=== PATIENT | female | born 1985 | race Caucasian/White ===

== ENCOUNTER 2016-09-18 02:09 | Emergency (ER) | payer OTHER ==
[~2016-09-18] VITALS: Ht 152.4 cm; Wt 90.6 kg
[~2016-09-18 02:09] MED LIST: BCPILLS PO
[2016-09-18 02:17] VITALS: TEMP 36.5; Ht 152.4 cm; Wt 90.6 kg
[2016-09-18 02:50] LABS: PREG INTERNAL NEGATIVE QC NEG CLEAR BACKGROUND; PREG INTERNAL POSITIVE QC POS CONTROL LINE
[2016-09-18 02:51] LABS: URINE APPEARANCE CLEAR (CLEAR); URINE BILIRUBIN NEG (NEG); URINE COLOR YELLOW; URINE EPITHELIAL CELL AUTO 0-5 /lpf (0-5); URINE NITRITE NEG (NEG); URINE PH 5.5 (4.5-7.5); URINE SPECIFIC GRAVITY 1.002 (1.000-1.030); UROBILINOGEN NEG (NEG); ZZUR CULT IF INDIC CLEAN CATCH YES
[2016-09-18 02:55] LABS: MANUAL MICROSCOPIC REQUIRED? NO; REVIEW REQ? NO
[2016-09-18] MEDS ORDERED: SULFAMETHOXAZOLE/TRIMETHOPRIM DS 800/160MG TAB PO STA (02:59)
[2016-09-18] MEDS ORDERED: PHENAZOPYRIDINE HCL 200 MG TAB PO STA (02:59)
[2016-09-18] MEDS ORDERED: SEPTRA DS HOME PACK 1 EA VIAL PO ONE (03:00)
[2016-09-18] MEDS ORDERED: PHENAZOPYRIDINE HOME PACK 200 MG VIAL PO ONE (03:00)
[2016-09-18 03:03] VITALS: BP 102/71; PULSE 82; O2SAT 100
[2016-09-18] MEDS ORDERED: PHEN-876 PO (03:09)
[2016-09-18] MEDS ORDERED: SULF800T23 PO (03:09)
--- NOTE | 2016-09-18 03:10 | EMERGENCY ROOM VISIT NOTE ---
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 Patient is a 31-year- old female who presents to the emergency Department this morning for evaluation of her brain with urination and suprapubic pain. She reports that she developed symptoms approximately 1 hour prior to arrival. She reports a history of UTI approximately 9 years ago. She denies any fevers, but does report chills. She feels nauseated, but has not vomited. There is been no pain into her back or flank. The patient rates her current discomfort as an 8/ 10. She is tried nothing [id number]-[id number] for her symptoms. She is uncertain of her status. Her last period was August 25. She denies any headaches , distance, chest pain, palpitations, short of breath, hematemesis, hematochezia , melena, hematuria, or dysuria. She denies any vaginal bleeding or spotting. Medications: No current medications. Allergies: No known allergies. PMH: No pertinent past medical history. SHx: Patient is a 31-year-old female who lives locally. ROS: All pertinent positive and negative review of systems are appropriately documented in the History of Present Illness. Physical Exam: VITAL SIGNS - Vital signs and nursing notes were reviewed. GENERAL - 31-year-old female appearing her stated age who is in no acute distress. Communicates well with provider and answers questions appropriately. ABDOMEN - Abdominal contour obese and without pulsations or visible masses. BS normoactive all four quadrants. Mild tenderness to palpation appreciated in the suprapubic area. No palpable masses, hepatosplenomegaly, or ascites noted. PSYCH - A&Ox3 and cooperates fully with examiner. Pt is very pleasant and interacts well with examiner. LABS: Last 24 Hours Test 09/18/16 02:22 Urine Color YELLOW Urine Appearance CLEAR Urine pH 5.5 Urine Specific [place] 1.002 Urine Protein NEG Urine Glucose (UA) NEG Urine Ketones NEG Urine Occult Blood 3+ Urine Nitrite NEG Urine Bilirubin NEG Urine Urobilinogen NEG Urine Leukocyte Esterase MODERATE Urine WBC (Auto) 10-30 /hpf Urine RBC (Auto) 0-4 /hpf Urine Hyaline Casts (Auto) 0 /lpf Urine Epithelial Cells (Auto) 0-5 /lpf Urine Bacteria (Auto) 1+ Urine Test NEG ED Course: Patient was seen and evaluated by myself. Urinalysis was obtained. Patient was treated with Bactrim and Pyridium orally in the emergency setting. She was encouraged to follow-up with her primary care provider. She was educated on worrisome symptoms for return visit to the emergency department. Patient discharged home afebrile and in good condition. In the evaluation and treatment of this patient, the following differential diagnoses were considered: Bladder Cancer, Chlamydial Genitourinary Infection, Cystitis, Herpes Simplex, Interstitial Cystitis, PID, Pyelonephritis, Urethritis , or Vaginitis. Impression: UTI, Dysuria Discharge Instructions: You have been treated in the Emergency Department for a Urinary Tract Infection (UTI). You have been prescribed Bactrim to be taken as prescribed. This is an antibiotic. All antibiotics have the potential to cause diarrhea. Stop this medication and contact a medical provider if you were to develop any significant adverse side effects including: wheezing, shortness of breath, passing out, vomiting, or a diffuse rash. Always take antibiotics as directed and COMPLETE the ENTIRE course regardless of the improvement of your symptoms. You have been prescribed Pyridium to be taken as prescribed. This medicine will help with the urinary symptoms that you have been experiencing. Be aware that Pyridium may turn your urine a red-orange or brown color. This effect is harmless. For pain control, you can use the following rdzn-vsl-ovtfmcr medicines (if >12 yo): - Regular strength (325mg/tab) Tylenol (acetaminophen) 2 tabs every 4-6 hours as needed. Do not exceed 12 tablets in a 24 hour period. Avoid taking more than 4 grams (4000 mg) of Tylenol per day. This includes any other sources of acetaminophen you may take on a regular basis. - Regular strength (200 mg/tab) Advil (ibuprofen) 1-2 tabs every 4-6 hours as needed. Do not exceed a dose of 3200 mg per day. Return to the emergency department if your symptoms worsen despite treatment course outlined above. Drink plenty of water and stay well hydrated. As with any trip to the Emergency Department, you should follow-up with your Primary Care Provider from today's visit. Return to the emergency department if your symptoms persist despite treatment plan outlined above or if the following symptoms occur: increased fevers, chills , low back pain, nausea/vomiting, or blood in your urine. Problem List Surgical Problems: (1) Hx of tonsillectomy Status: Resolved Current/Historical Medications Scheduled Control Pills ( Control Pills), 1 TAB PO DAILY Phenazopyridine HCl (Pyridium), 200 MG PO TID Sulfa/Trimethoprim (Bactrim Ds 800MG/160MG), 1 TAB PO BID Allergies Coded Allergies: No Known Allergies (Unverified , 09/18/16) Vital Signs Date Time Temp Pulse Resp B/P Pulse Ox O2 Delivery O2 Flow Rate FiO2 09/18/16 03:03 82 18 102/71 100 Room Air 09/18/16 02:17 36.5 80 18 124/83 100 Room Air Laboratory Results Test 09/18/16 02:22 Urine Color YELLOW Urine Appearance CLEAR (CLEAR) Urine pH 5.5 (4.5-7.5) Urine Specific [place] 1.002 (1.000-1.030) Urine Protein NEG (NEG) Urine Glucose (UA) NEG (NEG) Urine Ketones NEG (NEG) Urine Occult Blood 3+ (NEG) Urine Nitrite NEG (NEG) Urine Bilirubin NEG (NEG) Urine Urobilinogen NEG (NEG) Urine Leukocyte Esterase MODERATE (NEG) Urine WBC (Auto) 10-30 /hpf (0-5) Urine RBC (Auto) 0-4 /hpf (0-4) Urine Hyaline Casts (Auto) 0 /lpf (0-5) Urine Epithelial Cells (Auto) 0-5 /lpf (0-5) Urine Bacteria (Auto) 1+ (NEG) Urine Test NEG (NEG) Medications Administered Medications (Trade) Dose Ordered Sig/Margret Route Start Time Stop Time Status Last Admin Dose Admin Trimethoprim/ Sulfamethoxazole (Sulfameth/ Trimeth Ds 800/ 160MG Home Pack) 1 homepack UD ONCE PO 09/18/16 03:00 09/18/16 03:01 DC 09/18/16 03:23 1 HOMEPACK Trimethoprim/ Sulfamethoxazole (Septra Ds 800/ 160MG Tab) 1 tab NOW STAT PO 09/18/16 02:59 09/18/16 03:00 DC 09/18/16 03:22 1 TAB Phenazopyridine HCl (Pyridium Tab) 200 mg NOW STAT PO 09/18/16 02:59 09/18/16 03:01 DC 09/18/16 03:22 200 MG Phenazopyridine HCl (Phenazopyridine HCl 200MG Home Pack) 1 homepack UD ONCE PO 09/18/16 03:00 09/18/16 03:01 DC 09/18/16 03:23 1 HOMEPACK Departure Information Impression Primary Impression: Urinary tract infection Additional Impression: Dysuria Dispostion Home / Self-Care Condition GOOD Prescriptions Phenazopyridine HCl (Pyridium) 200 Mg Tab 200 MG PO TID for 3 Days, #9 TAB Prov: Andrew Hernandez PA-C 09/18/16 Sulfa/Trimethoprim (Bactrim Ds 800MG/160MG) Tab 1 TAB PO BID for 5 Days, #10 TAB Prov: Andrew Hernandez PA-C 09/18/16 Referrals Isaiah Diaz M.D. (PCP) Patient Instructions ED UTI Cystitis Female, [facility] Additional Instructions You have been treated in the Emergency Department for a Urinary Tract Infection (UTI). You have been prescribed Bactrim to be taken as prescribed. This is an antibiotic. All antibiotics have the potential to cause diarrhea. Stop this medication and contact a medical provider if you were to develop any significant adverse side effects including: wheezing, shortness of breath, passing out, vomiting, or a diffuse rash. Always take antibiotics as directed and COMPLETE the ENTIRE course regardless of the improvement of your symptoms. You have been prescribed Pyridium to be taken as prescribed. This medicine will help with the urinary symptoms that you have been experiencing. Be aware that Pyridium may turn your urine a red-orange or brown color. This effect is harmless. For pain control, you can use the following gxzc-tyo-otfllat medicines (if >12 yo): - Regular strength (325mg/tab) Tylenol (acetaminophen) 2 tabs every 4-6 hours as needed. Do not exceed 12 tablets in a 24 hour period. Avoid taking more than 4 grams (4000 mg) of Tylenol per day. This includes any other sources of acetaminophen you may take on a regular basis. - Regular strength (200 mg/tab) Advil (ibuprofen) 1-2 tabs every 4-6 hours as needed. Do not exceed a dose of 3200 mg per day. Return to the emergency department if your symptoms worsen despite treatment course outlined above. Drink plenty of water and stay well hydrated. As with any trip to the Emergency Department, you should follow-up with your Primary Care Provider from today's visit. Return to the emergency department if your symptoms persist despite treatment plan outlined above or if the following symptoms occur: increased fevers, chills , low back pain, nausea/vomiting, or blood in your urine. Problem Qualifiers Primary Impression: Urinary tract infection Urinary tract infection type: acute cystitis Hematuria presence: without hematuria Qualified Codes: N30.00 - Acute cystitis without hematuria
== END 2016-09-18 03:25 | disposition home or self-care (01) ==
LOC: C.EDB 02:10
DX: N39.0 Urinary tract infection, site not specified (principal); E66.9 Obesity, unspecified; Z79.3 Long term (current) use of hormonal contraceptives; Z68.39 Body mass index [BMI] 39.0-39.9, adult

== ENCOUNTER → 2017-01-04 | Outpatient (CLI) | payer OTHER ==
[2017-01-04 13:01] LABS: GTGD 50 Grams
== END | disposition home or self-care (01) ==
LOC: C.LAB1850 10:53
PROVIDERS: ATTEND Obstetrics & Gynecology
DX: Z34.82 Encounter for supervision of other normal pregnancy, second trimester (principal)

== ENCOUNTER → 2017-03-08 | Outpatient (CLI) | payer OTHER ==
[2017-03-08 11:25] LABS: URINE APPEARANCE CLEAR (CLEAR); URINE BILIRUBIN NEG (NEG); URINE COLOR DK YELLOW; URINE EPITHELIAL CELL AUTO >30 /lpf (0-5); URINE NITRITE NEG (NEG); URINE PH 5.5 (4.5-7.5); URINE SPECIFIC GRAVITY 1.025 (1.000-1.030); UROBILINOGEN NEG (NEG)
[2017-03-08 11:27] LABS: MANUAL MICROSCOPIC REQUIRED? NO; REVIEW REQ? NO
== END | disposition home or self-care (01) ==
LOC: C.LABSPEC 11:02
PROVIDERS: ATTEND Obstetrics & Gynecology
DX: Z34.82 Encounter for supervision of other normal pregnancy, second trimester (principal); Z3A.00 Weeks of gestation of pregnancy not specified

== ENCOUNTER → 2017-03-08 | Outpatient (CLI) | payer OTHER ==
[2017-03-08 10:34] LABS: GTGD 50 Grams
[2017-03-08 10:38] LABS: HEMATOCRIT 34.1 % (37-47)
== END | disposition home or self-care (01) ==
LOC: C.LAB1850 09:49
PROVIDERS: ATTEND Obstetrics & Gynecology
DX: Z34.82 Encounter for supervision of other normal pregnancy, second trimester (principal); Z3A.00 Weeks of gestation of pregnancy not specified

== ENCOUNTER → 2017-05-05 | Outpatient (CLI) | payer OTHER | END | disposition home or self-care (01) | LOC: C.LABSPEC 13:34 | PROVIDERS: ATTEND Obstetrics & Gynecology | DX: Z34.83 Encounter for supervision of other normal pregnancy, third trimester (principal); Z3A.00 Weeks of gestation of pregnancy not specified ==

== ENCOUNTER 2017-06-06 01:00 | Inpatient (IN) | payer OTHER ==
[~2017-06-06] VITALS: Ht 152.4 cm; Wt 97.1 kg
[2017-06-06] MEDS ORDERED: NURSING VERBAL MED ORDER ONE (01:30)
[2017-06-06] MEDS ORDERED: BUPIVACAINE 0.25% 30 ML VIAL ONE (01:43)
[2017-06-06] MEDS ORDERED: FENTANYL 2MCG/ML ROPIV 1.25MG/ML 100ML BAG EPI ONE (01:43)
[2017-06-06] MEDS ORDERED: EpHEDrine SULFATE INJ 50 MG/ML AMP ONE (01:43)
[2017-06-06] MEDS ORDERED: FENTANYL CITRATE INJ 50 MCG/1 ML 2 ML VIAL ONE (01:44)
[2017-06-06] MEDS ORDERED: PRENTAB26 PO (01:47)
[2017-06-06 01:49] VITALS: Ht 152.4 cm; Wt 97.1 kg
[2017-06-06] MEDS ORDERED: LACTATED RINGER'S 1000ML 1,000 ML IV SCH (01:52)
[2017-06-06] MEDS ORDERED: LACTATED RINGER'S 1000ML 1,000 ML IV PRN (01:52)
[2017-06-06 02:10] LABS: HEMATOCRIT 38.5 % (37-47); MEAN CORPUSCULAR HEMOGLOBIN 31.7 pg (25-34); MEAN CORPUSCULAR HGB CONC 34.8 g/dl (32-36); MEAN PLATELET VOLUME 13.6 fL (7.4-10.4); PLATELET COUNT 107 K/uL (130-400); PLT ESTIMATE DECREASED; RED BLOOD COUNT 4.23 M/uL (4.2-5.4); WHITE BLOOD COUNT 6.76 K/uL (4.8-10.8)
[2017-06-06] MEDS ORDERED: NALOXONE HCL INJ 1 MG in SODIUM CHLORIDE 0.9% 1000ML 1,000 ML IV PRN (02:36)
[2017-06-06] MEDS ORDERED: LACTATED RINGER'S 1000ML 500 ML IV PRN (02:36)
[2017-06-06] MEDS ORDERED: DiphenhydrAMINE HCL 50 MG/ML VIAL IV PRN (02:45)
[2017-06-06] MEDS ORDERED: NALBUPHINE HCL INJ 10 MG/ML AMP IV PRN (02:45)
[2017-06-06] MEDS ORDERED: FENTANYL 2MCG/ML ROPIV 1.25MG/ML 100ML BAG EPI PRN (02:45)
[2017-06-06] MEDS ORDERED: ONDANSETRON INJ 2 MG/ML 2 ML VIAL IV PRN (02:45)
[2017-06-06] MEDS ORDERED: NALOXONE HCL INJ 0.4 MG/1 ML VIAL/CARP IV PRN (02:45)
[2017-06-06] MEDS ORDERED: EpHEDrine SULFATE INJ 50 MG/ML AMP IV PRN (02:45)
[2017-06-06] MEDS ORDERED: OXYTOCIN 30 UNITS/500ML NSS IV ONE (03:02)
[2017-06-06] MEDS ORDERED: DIPHTHERIA/TETANUS/PERTUSSIS 0.5 ML SYR/VIAL IM. ONE (04:00)
[2017-06-06] MEDS ORDERED: ACETAMINOPHEN 325 MG TAB PO PRN (04:00)
[2017-06-06] MEDS ORDERED: BENZOCAINE 20% AER SPR 82.5 GM CAN EXT PRN (04:00)
[2017-06-06] MEDS ORDERED: LANOLIN OINT EXT PRN ×2 (04:00)
[2017-06-06] MEDS ORDERED: ACETAMINOPHEN/CODEINE 300/30MG TAB PO PRN ×2 (04:00)
[2017-06-06] MEDS ORDERED: SUPERCREAM 0.870 % 15GM JAR EXT PRN (04:00)
[2017-06-06] MEDS ORDERED: HYDROCORTISONE ACETATE 25 MG SUPP PR PRN (04:00)
[2017-06-06] MEDS ORDERED: OXYTOCIN 30 UNITS/500ML NSS IV PRN (04:00)
--- NOTE | 2017-06-06 05:18 | DELIVERY SUMMARY ---
DATE OF OPERATION: 06/06/2017 FINDINGS: Viable female with Apgars of 8 and 9. Baby delivered spontaneously over a midline second degree laceration. Cord gases and cord blood samples obtained. Placenta delivered spontaneously. Laceration repaired with 4-0 Vicryl. ESTIMATED BLOOD LOSS: 300 mL. DELIVERY NOTE: The patient is a 31-year-old 4, para 2 with an EDC of 01 June by dates and first trimester ultrasound who presented in active labor. The patient states that contractions began somewhere in evening on the 05 of June and increased in intensity. She denied rupture of membranes or vaginal bleeding. The patient has had a benign course. She does not speak any [place] and all communication has been through her . The patient's blood type is A+, antibody negative, rubella immune, hepatitis B negative. She declined a quad screen. She denied first trimester cell for a DNA screen. She had normal 1-hour Glucola x2 and a negative third trimester beta strep culture. Upon admission, the patient was 6 cm dilated, 100% effaced and active labor. Tracing was category 2. The patient requested an epidural which was placed following placement of the epidural. The patient was fully dilated. Artificial rupture of membranes for clear fluid. The patient began her second stage and pushed for approximately 10 minutes to deliver the viable female infant. Cord was clamped and cut. Cord gases and cord blood samples obtained. Placenta delivered spontaneously. Inspection of the perineum showed a midline second degree laceration which was repaired with 4-0 Vicryl in routine fashion. Estimated blood loss 300 mL. Sponge and needle count was correct. I attest to the content of the Intraoperative Record and any orders documented therein. Any exception s are noted below.
[2017-06-06 06:10] VITALS: BP 100/65; PULSE 63; TEMP 36.9
[2017-06-06] MEDS: FERROUS SULFATE 325 MG TAB PO SCH (07:57)
[2017-06-06] MEDS: DOCUSATE SODIUM 100 MG CAP PO SCH ×2 (07:58→20:00)
[2017-06-06] MEDS: PRENATAL VITAMIN TAB PO SCH (07:58)
[2017-06-06 08:00] VITALS: BP 117/79; PULSE 78; TEMP 36.8
[2017-06-06] MEDS: IBUPROFEN 600 MG TAB PO PRN ×4 (08:21→20:29)
--- NOTE | 2017-06-06 11:25 | Anesthesia Procedure Note ---
Anesthesia Epidural Removal Nt Date & Time Jun 06, 2017 at 11:25 Vital Signs Pain Intensity: 1.0 Vital Signs Past 12 Hours Date Time Temp Pulse Resp B/P (MAP) Pulse Ox O2 Delivery O2 Flow Rate FiO2 06/06/17 08:00 36.8 78 18 117/79 (92) Room Air 06/06/17 08:00 Room Air 06/06/17 06:10 Room Air 06/06/17 06:10 36.9 63 18 100/65 (77) Room Air Notes Mental Status: alert / awake / arousable, participated in evaluation Nausea / Vomiting: adequately controlled Pain: adequately controlled Airway Patency, RR, SpO2: stable & adequate BP & HR: stable & adequate Hydration State: stable & adequate Neuraxial Anesthesia: was administered Anesthetic Complications: no major complications apparent, pt satisfied with anesthetic care Epidural: removed without complications, with tip intact
[2017-06-06 12:00] VITALS: BP 103/69; PULSE 55; TEMP 37
[2017-06-06 15:45] VITALS: BP 107/72; PULSE 73; TEMP 36.9
[2017-06-06 19:30] VITALS: BP 97/65; PULSE 73; TEMP 36.5
[2017-06-06 23:00] VITALS: BP 101/68; PULSE 80; TEMP 37
[2017-06-07 03:05] VITALS: BP 118/78; PULSE 72; TEMP 36.6
[2017-06-07] MEDS: IBUPROFEN 600 MG TAB PO PRN ×4 (03:07→23:47)
[2017-06-07 06:31] LABS: HEMATOCRIT 35.5 % (37-47)
[2017-06-07 07:29] VITALS: BP 95/65; PULSE 65; TEMP 36.5
--- NOTE | 2017-06-07 07:57 | Progress Note ---
Subjective Jun 07, 2017. Subjective conversation w/ patient, physical exam, lab review Ambulation: ambulating normally Voiding: no voiding problems Passing Gas: Yes Diet Tolerance: Regular Diet Lochia: Small Feeding Type: Breast Feeding Pain: controlled with pain meds Objective Vital Signs Date Time Temp Pulse Resp B/P (MAP) Pulse Ox O2 Delivery O2 Flow Rate FiO2 06/07/17 07:29 36.5 65 20 95/65 (75) 06/07/17 03:05 36.6 72 16 118/78 (91) Room Air 06/06/17 23:00 Room Air 06/06/17 23:00 37.0 80 18 101/68 (79) Room Air 06/06/17 19:30 36.5 73 18 97/65 (76) Room Air 06/06/17 15:45 36.9 73 18 107/72 (84) Room Air 06/06/17 15:45 Room Air 06/06/17 12:00 37.0 55 18 103/69 (80) Room Air 06/06/17 08:00 36.8 78 18 117/79 (92) Room Air 06/06/17 08:00 Room Air Physical Exam General Appearance: WELL-APPEARING, WD/WN, NO APPARENT DISTRESS Abdomen: non tender, soft Fundus: Firm, Non-Tender, Relation to Umbilicus (at u) Extremities: non-tender, normal inspection, + pedal edema (+1) Laboratory Results Last 24 Hours Test 06/07/17 06:05 Hemoglobin 12.0 g/dL Hematocrit 35.5 % Assessment and Plan Problem List Medical Problems: (1) Chemical conjunctivitis of left eye Status: Acute (2) Dysuria Status: Acute (3) Urinary tract infection Status: Acute Post- Day#: 1 Continue Routine Care: Doing well. Routine care. Plan d/c tomorrow. Interview today with market research lead.
[2017-06-07] MEDS: FERROUS SULFATE 325 MG TAB PO SCH (08:13)
[2017-06-07] MEDS: DOCUSATE SODIUM 100 MG CAP PO SCH ×2 (08:13→20:15)
[2017-06-07] MEDS: PRENATAL VITAMIN TAB PO SCH (08:13)
[2017-06-07 15:30] VITALS: BP 121/79; PULSE 59; TEMP 36.7
[2017-06-07] MEDS ORDERED: BISACODYL 5 MG TABEC PO SCH (20:00)
[2017-06-07 23:10] VITALS: BP 99/66; PULSE 77; TEMP 36.8
[2017-06-08] MEDS: IBUPROFEN 600 MG TAB PO PRN (05:40)
--- NOTE | 2017-06-08 06:39 | Discharge Instructions ---
Discharge Instructions Date of Service Jun 08, 2017. Admission Reason for Admission: LABOR Discharge Discharge Diagnosis / Problem: recovery from ormal delivery Discharge Goals Goal(s): Routine recovery after delivery Medications Continue Dispensed Medications: supercream, dermaplast, tucks, lansinoh Activity Recommendations Activity Limitations: per Instructions/Follow-up section . Instructions / Follow-Up Instructions / Follow-Up ACTIVITY RECOMMENDATIONS: * Gradual return to full activity over the next 2-3 weeks. * No lifting - nothing heavier than baby over the next 2-3 weeks. * Do not engage in vigorous exercise, sexual activity or sports until cleared by your physician. * Do not drive or operate any motorized equipment until cleared by your physician. * You may shower/bathe daily. MEDICATIONS: For discomfort or pain, you may use Acetaminophen (Tylenol), Ibuprofen (Advil), or Naproxen (Aleve) following the package directions. For constipation you may use Colace following the package directions. BREAST CARE: If you are not breast feeding: * Wear a supportive bra 24 hours a day for one to two weeks. * Avoid stimulating your breasts and nipples as much as possible during the first few weeks after delivery. * When taking a shower, have the warm water hit your back, not breasts. * When your breasts feel full, apply ice packs. Usually three to four times a day helps ease the discomfort. * Take a mild pain medication (Tylenol / Motrin) when you are uncomfortable. If breast feeding: * Use breast milk to lubricate nipples. Lansinoh cream may be used for sore nipples. You do not need to remove cream prior to breast feeding. If using a different brand of cream, check the label for directions regarding removal of cream prior to nursing. * Wear a supportive bra. * If having problems with breasts or breast feeding, call a bank consultant or your health care provider. EPISIOTOMY CARE: After delivery, if you have an episiotomy (stitches), the following steps will ease discomfort and aid healing. * For the first 24 hours after delivery, place ice packs next to your episiotomy to help reduce swelling. * After the first 24 hour-period, sitz baths, either portable or in the tub, are suggested. A shower with a shower arm sprayed over the episiotomy may be comforting. * Tala care should be done after each voiding and bowel movement. Squirt warm water from a plastic bottle over the perineum (region of the body between the anus and urinary opening) and pat dry. * Use Dermoplast to ease discomfort. Shake container. [place] directly over the episiotomy. Place a Tucks on a clean sanitary pad next to your episiotomy. SPECIAL CARE INSTRUCTIONS: When you are discharged from the hospital, it is important for you to follow the instructions listed below: * During the first week at home, you should be able to care for yourself and your baby. In addition, the usual light household activities are encouraged. * Limit your activities to the way you feel. Do not try to clean the house or move furniture. Be sensible. * If you actively engage in sports and have done so up until the time of your delivery, you may resume these activities as soon as you feel able. This may take up to one month or even longer. Use good judgment. * Continue to take your vitamins for at least six weeks after the of your baby. * Your diet need not be limited unless you were on a special diet before your delivery. Breast-feeding mothers need around 2500 calories per day and at least 64-80 ounces of fluid per day (8 to 10 glasses). * You should eat foods from the four major food groups. Crash diets or fad diets are to be avoided. Eating lean meats, fresh fruits and vegetables, low-fat dairy products, high fiber foods and a regular exercise program, will help you get back to your pre- weight without putting your health at risk. * Constipation is sometimes a problem after delivery. Take a mild laxative as needed. If breast feeding, Milk of Magnesia is acceptable to use. You may use a suppository or Fleets enema if no episiotomy. * A daily shower or tub bath is suggested. Be sure to thoroughly and gently dry the perineum. * A bloody vaginal discharge will usually continue until around four weeks post . A small amount of bleeding may continue for as long as six weeks. Vaginal discharge changes from the bright red bleeding after delivery to pink then brownish and finally yellowish-pink before becoming white and disappearing. * Bleeding may increase with activity. Your first period may come in 4-8 weeks. If you are breast feeding, your period may be delayed even longer. * [place] (sex) can begin whenever both you and your partner feel comfortable and do not have any form of genital infection. It is recommended that you wait at least six weeks for internal and external healing to occur. If you have questions, please talk to your health care practitioner. A condom should be used to prevent infection and . * Foreplay, gentle intercourse and lubrication is very important the first several times to prevent pain. A water-based lubricant such as K-Y jelly or Astroglide may be used. * If you have RH negative blood and your baby is RH positive, you will receive RHOGAM by injection prior to discharge. The nurse will give you a card to keep with you that has the date and place that you received RHOGAM after delivery. * During your care, you had a Rubella screen done to check for the presence of rubella antibodies in your blood. If your test was negative, you will receive a Rubella vaccine prior to discharge. This vaccine may cause a fever, soreness at the injection site and flu-like symptoms. If these symptoms persist, notify your health care practitioner. is not advised for one month after a Rubella vaccine. * Verbalizes understanding of car seat law as reviewed with patient nursing. * Car Seat hand-out given and reviewed with patient by nursing. * Shaken baby information reviewed with patient by nursing. Call you doctor if: * Heavy bleeding (saturating several pads an hour) or passing clots the size of your fist. * A fever >101 degrees F (38.3 degrees C) on two occasions four hours apart and /or chills. * Unusual pain in the pelvic or vaginal areas. * "Baby Blues" lasting longer than two weeks. If you have any questions or concerns, call your health care practitioner at . FOLLOW UP VISIT: * Please call the office at to schedule a 6 week examination. It is important you keep this appointment. It is important for you to make arrangements for either yearly or twice yearly check-ups thereafter. Current Hospital Diet Patient's current hospital diet: Regular OB Diet Discharge Diet Recommended Diet: Regular OB Diet Pending Studies Studies pending at discharge: no Medical Emergencies . Who to Call and When: Medical Emergencies: If at any time you feel your situation is an emergency, please call [phone] immediately. . Non-Emergent Contact Non-Emergency issues call your: Drawing In Machine Tender . . "Provider Documentation" section prepared by Joleen Dumont. . VTE Core Measure Inpt VTE Proph given/why not?: Treatment not indicated
--- NOTE | 2017-06-08 07:08 | Progress Note ---
Subjective Jun 08, 2017. Subjective conversation w/ patient, physical exam Ambulation: ambulating normally Voiding: no voiding problems Passing Gas: Yes Diet Tolerance: Regular Diet Lochia: Small Feeding Type: Breast Feeding Review of Systems Constitutional: No fever, No chills, No sweats, No weight loss, No weakness, No fatigue, No problem reported Breast: No see HPI, No breast lump, No change in shape, No nipple discharge, No breast pain, No problem reported Abdomen: No pain, No nausea, No vomiting, No diarrhea, No constipation, No GI bleeding, No problem reported Female : No see HPI, No dysuria, No urinary frequency, No hematuria, No incontinence, No abnormal vaginal bleeding, No vaginal discharge, No problem reported Objective Vital Signs Date Time Temp Pulse Resp B/P (MAP) Pulse Ox O2 Delivery O2 Flow Rate FiO2 06/07/17 23:10 Room Air 06/07/17 23:10 36.8 77 18 99/66 (77) Room Air 06/07/17 15:30 Room Air 06/07/17 15:30 36.7 59 18 121/79 (93) Room Air 06/07/17 07:29 36.5 65 20 95/65 (75) 06/07/17 07:20 Room Air Physical Exam General Appearance: WELL-APPEARING, NO APPARENT DISTRESS Abdomen: normal bowel sounds, soft Fundus: Firm, Non-Tender, Relation to Umbilicus (2 below U) Extremities: no calf tenderness Assessment and Plan Problem List Medical Problems: (1) Chemical conjunctivitis of left eye Status: Acute (2) Dysuria Status: Acute (3) Urinary tract infection Status: Acute Post- Day#: 2 Continue Routine Care: satisfactory course discharge to home follow up in 6 weeks
[2017-06-08 07:16] VITALS: BP 112/76; PULSE 58; TEMP 36.7; O2SAT 98
[2017-06-08] MEDS: DOCUSATE SODIUM 100 MG CAP PO SCH (08:32)
[2017-06-08] MEDS: PRENATAL VITAMIN TAB PO SCH (08:32)
[2017-06-08] MEDS: FERROUS SULFATE 325 MG TAB PO SCH (08:32)
[2017-06-08 13:45] VITALS: BP_DIAS 76; PULSE 58; TEMP 36.7
== END 2017-06-08 14:05 | disposition home or self-care (01) | DRG 775 ==
LOC: C.LD 01:00 → C.OPB 01:00 → C.LD 01:27 → C.OPB 01:27 → C.OBG 06:02
PROVIDERS: ADMIT Obstetrics & Gynecology; ATTEND Obstetrics & Gynecology
PROC: 10E0XZZ Delivery of Products of Conception, External Approach (ICD-10-PCS; principal; 2017-06-06)
PROC: 0KQM0ZZ Repair Perineum Muscle, Open Approach (ICD-10-PCS; principal; 2017-06-06)
DX: O70.1 Second degree perineal laceration during delivery (principal); Z3A.40 40 weeks gestation of pregnancy; Z37.0 Single live birth